=== PATIENT | female | born 1995 | race Caucasian/White ===

== ENCOUNTER 2019-01-17 01:30 | Emergency (ER) | payer OTHER ==
[~2019-01-17] VITALS: Ht 165.1 cm; Wt 65.8 kg
[2019-01-17 01:30] VITALS: BP 129/86
[2019-01-17 01:53] VITALS: BP 129/86
== END 2019-01-17 01:53 | disposition home or self-care (01) ==
LOC: MED 01:30
DX: F12.929 Cannabis use, unspecified with intoxication, unspecified (principal)
CPT/HCPCS: 99283